=== PATIENT | male | born 1960 | race Caucasian/White ===

== ENCOUNTER 2016-09-01 23:27 | Inpatient (IN) | payer MEDICARE ==
--- NOTE | ~2016-09-01 | HP ---
Unit #: [id number] #: [id number] Patient: SABINO GRAY [id number] [address] [place], [place] [address] [id number] MR#: [id number] NAME: SABINO GRAY ROOM: Age: 56 Sex: M Admission Date: 09/01/2016 : 1960 Attending Physician: Vinny Chand M.D. Primary Care Physician: Jimi Bella M.D. HISTORY AND PHYSICAL CHIEF COMPLAINT Elavil overdose. HISTORY This 56-year-old male with hypertension, CAD, tremors, is admitted following a tricyclic overdose. The patient took an unknown amount of Elavil around 8 p.m. It was estimated possibly it was 400 mg but we are really unsure. He states that he took the Elavil to kill himself. He presented to this emergency department around midnight tachycardic. He was, therefore, given an amp of bicarb and bolused with a liter of saline. His EKG shows sinus tachycardia but his QRS is normal. PAST MEDICAL HISTORY 1. CAD, status post PCI and stent to the proximal LAD with drug-eluting stent x3. 2. Hyperlipidemia. 3. Hypertension. 4. GERD. 5. Tremor of uncertain etiology. 6. History of kidney stones. 7. Multiple hernia repairs. 8. Lithotripsy. 9. Cystoscopy x5. 10. T and A. 11. Right arm surgery following a fracture. ALLERGIES Morphine and Demerol. HOME MEDICATIONS Uncertain. FAMILY HISTORY CAD, diabetes mellitus and malignancy. SOCIAL HISTORY The patient lives with his . He smoked when he was in his teens. He drinks a bottle of wine on an evening basis. REVIEW OF SYSTEMS Notable for depression, suicide attempt, CAD, above-mentioned surgeries, hypertension, kidney stones, alcohol abuse. All other systems were Unit #: [id number] #: [id number] Patient: SABINO GRAY reviewed and are otherwise negative. PHYSICAL EXAMINATION GENERAL APPEARANCE: 56-year-old male who is quite tremulous. VITAL SIGNS: Temperature 97.8, pulse 121, respirations 14, blood pressure 132/86. O2 saturation 92% on room air. HEENT: Eyes PERRLA. Extraocular muscles are intact. Pharynx is benign with dry mucosal membranes. NECK: Supple without adenopathy or thyromegaly. CHEST: Clear. CARDIAC: Tachy S1 and S2 without murmur. ABDOMEN: Bowel sounds are present. No hepatosplenomegaly, tenderness or masses. EXTREMITIES: Without clubbing, cyanosis or edema. Pedal pulses are present. NEUROLOGIC: The patient is awake, alert but he seems to be a bit confused. His cranial nerves are intact. He is quite tremulous, particularly in his upper extremity on the left. These are both intention and resting tremor. DIAGNOSTIC STUDIES LABORATORY: SMA-12 - glucose 133, potassium 3.3. Acetaminophen, salicylate and alcohol levels are all negligible. ABG - pH 7.48, pCO2 36, pO2 67, O2 saturation 93.7% on room air. Urine tox screen positive for TCA. CARDIOVASCULAR: Initial EKG - sinus tachycardia, rate 121. Normal QRS. Repeat EKG - sinus tachycardia, rate 115. Prolonged QT interval but normal QRS. ASSESSMENT 1. Intentional tricyclic overdose: Possibly 400 mg but we are unsure. Patient is tachycardic with a normal QRS. 2. History of depression. 3. Tremors of uncertain etiology. 4. Coronary artery disease, status post multi-vessel percutaneous coronary intervention and stent. 5. Hypertension. 6. History of kidney stones. 7. Hypokalemia. 8. Alcohol abuse. PLANS 1. IV fluids with bicarb. 2. 72 hour hold with one-to-one sitter. 3. Benzos and vitamins. 4. SCDs for DVT prophylaxis. 5. Verify home medicines. 6. Replace potassium, check magnesium. 7. Recheck labs at noon. 8. [facility] to see when stable. Unit #: [id number] #: [id number] Patient: SABINO GRAY Dictated by Sagrario French M.D. AML/df TD: 09/02/2016 05:31 JOB #: [id number] HISTORY AND PHYSICAL Page 1 of 1 X Sagrario French MD HISTORY AND PHYSICAL
--- NOTE | ~2016-09-01 | DS ---
Unit #: [id number] #: [id number] Patient: SABINO GRAY [id number] [address] [place], [place] [address] [id number] I MR#: [id number] NAME: SABINO GRAY ROOM: 322 Age: 56 Sex: M Admission Date: 09/02/2016 : 1960 Discharge Date: 09/04/2016 Attending Physician: Unique Mcdaniel M.D. Primary Care Physician: Jimi Bella M.D. DISCHARGE SUMMARY ADDENDUM REPORT Since the time of that dictation, the patient was evaluated by [facility] who felt that the patient was not stable due to his much needed assistance with activities such as daily living. Therefore, was looking at other facilities that would be willing to accept the patient. They felt that this was possibly due to the Librium that the patient was being given that was making him more sedated than usual. Therefore, held off any additional Librium to be used. Dr. Cabrera of psychiatry, had been by in consultation to see the patient who felt that the patient was appropriate for [facility] and will be asking the admitting nurse to come back out to reevaluate the patient. At this time, the patient is stable to be discharged home. DISCHARGE MEDICATIONS The only thing that is different than what was stated yesterday is his home usage of metoprolol, will be stopped, and instead will be using propranolol 60 mg orally daily. Again please note at this time that the patient is safe and medically stable to be discharged to [facility] for continuing psychiatric need. Dictated by... Jazmin Bradford PA-C for Tae Stallings/sara TD: 09/05/2016 14:55 JOB #: [id number] DISCHARGE SUMMARY Page 1 of 1 X X DISCHARGE SUMMARY
--- NOTE | ~2016-09-01 | EKG ---
PATIENT: SABINO GRAY UNIT #: [id number] Ventricular Rate: 121 BPM Atrial Rate: 47 BPM QRS Duration: 110 ms Q-T Interval: 436 ms QTC Calculation(Bezet): 619 ms Calculated R Caney: 70 degrees Calculated T Caney: 25 degrees Diagnosis Line: Accelerated Junctional rhythm Diagnosis Line: Abnormal ECG Diagnosis Line: When compared with ECG of 26-NOV-2015 21:10, Diagnosis Line: Junctional rhythm has replaced Sinus rhythm Diagnosis Line: Criteria for Septal infarct are no longer Present Diagnosis Line: ST elevation now present in Lateral leads Diagnosis Line: Confirmed by BERTRAND LEIVA MD ([id number]) on 09/02/2016 Diagnosis Line: 10:41:17 AM INTERPRETING MD: CALI MUSA
--- NOTE | ~2016-09-01 | CO ---
Unit #: [id number] #: [id number] Patient: AJ SUNSHINE [id number] [facility] [address]. [place], [place] [address] [id number] I MR#: [id number] NAME: AJ SUNSHINE ROOM: 322 Age: 56 Sex: M Admission Date: 09/02/2016 : 1960 Attending Physician: Unique Mcdaniel M.D. Primary Care Physician: Jimi Bella M.D. Consultation Date: 09/03/2016 CONSULTATION REPORT REASON FOR CONSULTATION Overdose and depression. HISTORY OF PRESENT ILLNESS Mr. Aj Sunshine is a 56-year-old white male, seen in room 322, bed 1 on 09/03/2016 at [facility]. The patient was admitted on 09/01/2016 after taking Elavil overdose. The patient has a history of hypertension, CAD, and tremor. The patient has a good support system. Suffered from depression, history of previous suicide attempt. The patient was initially very sleepy. The patient reported that he was drinking and feeling sad, depressed, and took pills. The patient took intentional overdose with a plan to kill himself. The patient is still having suicidal ideation, sad, and depressed, but denied any hallucination. History of alcohol abuse. Needing inpatient admission for psychiatric stabilization. PAST PSYCHIATRIC HISTORY Remarkable for history of depression, history of previous suicide attempt, outpatient treatment. MEDICAL HISTORY History of CAD, status post PCI and stent to the proximal LAD; hyperlipidemia; hypertension; GERD; tremor of uncertain etiology; history of kidney stone; multiple hernia repairs; lithotripsy; cystoscopy; T and A; right arm surgery following fracture. ALLERGIES To morphine and Demerol. MEDICATIONS Please refer to MAR. FAMILY HISTORY AND SOCIAL HISTORY The patient has a good support from family. No history of any abuse, but history of alcohol abuse as mentioned above. REVIEW OF SYSTEMS A complete review of systems is unremarkable except as mentioned above. MENTAL STATUS EXAMINATION Vital signs; temperature 98.2, pulse 89, respirations 20, blood pressure 110/76, oxygen saturation 94%. General appearance; the patient dressed casually, lying comfortably in bed, but somewhat sleepy. Attention span and concentration, fair. Speech, slow. Oriented in time, place, and Unit #: [id number] #: [id number] Patient: AJ SUNSHINE. Mood and affect; sad and depressed. Thought process, coherent. Thought content; denied any thoughts of harming others, but having passive SI, recent suicide attempt. Denied any hallucination. Recent and remote memory, fair to slightly impaired. Language, fair. Fund of knowledge, fair to slightly impaired. Insight and judgment, fair to slightly impaired. DIAGNOSES Psychiatric: Major depressive disorder, recurrent, [id number]-[id number], F33.2; alcohol abuse, [id number]-py-elqbkt, F10.20. Secondary diagnosis: Deferred. Medical diagnosis: Please refer to H and P. Stressors: Psychosocial stressor. ASSESSMENT AND PLAN 1. Supportive psychotherapy and psychoeducation provided to the patient and family. 2. Educated about benefits and side effects of medication and course and prognosis of illness. 3. Recommending at this time to continue with hold and sitter for safety and transfer the patient to [facility] for inpatient psychiatric stabilization. Please feel free to call if any questions, telephone #[phone]. Dictated by... Lane Cabrera M.D. CASSIE/teddy TD: 09/04/2016 15:43 JOB #: [id number] CONSULTATION REPORT Page [address] MD X CONSULTATION REPORT
--- NOTE | ~2016-09-01 | CR58 ---
[facility] A Service of [facility] & [facility] RADIOLOGY TEXT RESULTS PATIENT: SABINO GRAY LOCATION: [facility] 322-01 : [birth year] UNIT #: [id number] AGE: [address]: Unique Mcdaniel MD SEX: M ORDER DR: [id number] [facility] [address] [place], [place] [address] [id number] I MR#: [id number] Acc #: [id number] NAME: SABINO GRAY : 1960 SEX: M STUDY DATE/TIME: 09/02/2016 13:32 UNIT: [address] ROOM: [facility] STUDY DESCRIPTION: CR Cervical Spine 2 or 3 Views Attending Physician: Unique Mcdaniel M.D. Ordering Physician: Tyrone Calle M.D. Primary Care Physician: Jimi Bella M.D. MEDICAL IMAGING REPORT This report is preliminary unless electronic signature is present EXAM Cervical spine series 09/02/2016 HISTORY Arm pain, numbness. Back pain, left arm pain began yesterday. History of cardiac disease. FINDINGS AP, lateral, open-mouth odontoid and swimmer's views of the cervical spine are presented. Poor quality study due to poor patient positioning and radiographic technique. No fracture or malalignment is suggested. Vertebral body heights are normal. Mild narrowing C2-C3 intervertebral disc space. Mild narrowing C5-C6 intervertebral disc space. Anterior osteophyte formations most prevalent at the C5-C6 level. C1-C2 relationship grossly normal. Visualized portions of odontoid process intact. Prevertebral soft tissues unremarkable. Visualized bony thorax intact. Upper lung zones show no evidence of acute pulmonary disease. Scattered dental hardware. Dictated by... Carlos Da Silva M.D. THIS IS AN ELECTRONICALLY VERIFIED REPORT Carlos Da Silva M.D. at 09/03/2016 7:52 PM GRICEL/jane TD: 09/02/2016 15:49 JOB #: [id number] MEDICAL IMAGING REPORT Page 1 of 1 COPY
--- NOTE | ~2016-09-01 | EKG ---
PATIENT: SABINO GRAY UNIT #: [id number] Ventricular Rate: 115 BPM Atrial Rate: 115 BPM P-R Interval: 196 ms QRS Duration: 90 ms Q-T Interval: 450 ms QTC Calculation(Bezet): 622 ms P Otter[place]: -28 degrees Calculated R [place]: 82 degrees Calculated T [place]: 40 degrees Diagnosis Line: Sinus tachycardia with Fusion complexes Diagnosis Line: Prolonged QT Baseline wander Diagnosis Line: Abnormal ECG Diagnosis Line: When compared with ECG of 26-NOV-2015 21:10, Diagnosis Line: Fusion complexes are now Present Diagnosis Line: Criteria for Septal infarct are no longer Present Diagnosis Line: Confirmed by BERTRAND LEIVA MD ([id number]) on 09/02/2016 Diagnosis Line: 10:44:24 AM INTERPRETING MD: CALI MUSA
--- NOTE | ~2016-09-01 | CR243 ---
[facility] A Service of [facility] & [facility] RADIOLOGY TEXT RESULTS PATIENT: SABINO GRAY LOCATION: [facility] 322-01 : 60 UNIT #: [id number] AGE: [address]: Unique Mcdaniel MD SEX: M ORDER DR: [id number] [facility] [address] [place], [place] [address] [id number] I MR#: [id number] Acc #: [id number] NAME: SABINO GRAY : 1960 SEX: M STUDY DATE/TIME: 09/02/2016 13:32 UNIT: C3A PCU ROOM: [facility] STUDY DESCRIPTION: CR Thoracic Spine 3 Views Attending Physician: Unique Mcdaniel M.D. Referring Physician: Jonathan Moore M.D. Ordering Physician: Tyrone Calle M.D. Primary Care Physician: Jimi Bella M.D. MEDICAL IMAGING REPORT This report is preliminary unless electronic signature is present EXAM Thoracic spine series. DATE OF EXAM 09/02/2016 HISTORY Arm pain numbness yesterday it began. Left arm pain, back pain. FINDINGS AP, lateral and swimmer's views of the thoracic spine presented. Poor quality study. Monitoring leads and wires and associated equipment overlie relevant anatomy. No fracture or malalignment. Vertebral body heights normal. Mild narrowing of some intervertebral disc spaces in the thoracolumbar junction region. Mild degenerative changes in the visualized cervical spine. There is no indication of fracture or traumatic malalignment. Small osteophyte formations seen at lower cervical spine levels and at the thoracolumbar junction levels. Visualized cardiac silhouette suggests mild cardiac enlargement. Lung volumes appear low with central bronchovascular crowding. The visualized ribs are intact. Visualized bowel gas pattern normal. Faint radiodensities superimposed over the right upper quadrant of the abdomen measuring about 9 mm in diameter is of unclear exact location. Given the appearance on the frontal view, it could represent a gallstone. Renal calculus felt less likely though not excluded. Vascular calcification is a consideration. Precise location unclear. If clinically warranted this could be further evaluated with CT examination. Dictated by... Carlos Da Silva M.D. [facility] A Service of [facility] RADIOLOGY TEXT RESULTS PATIENT: SABINO GRAY LOCATION: C3A 322-01 : 60 UNIT #: [id number] AGE: [address]: Unique Mcdaniel MD SEX: M ORDER DR: THIS IS AN ELECTRONICALLY VERIFIED REPORT Carlos Da Silva M.D. at 09/03/2016 7:52 PM GRICEL/marcel TD: 09/02/2016 17:06 JOB #: [id number] MEDICAL IMAGING REPORT Page 1 of 1 COPY
--- NOTE | ~2016-09-01 | DS ---
Unit #: [id number] #: [id number] Patient: SABINO GRAY [id number] [address] [place], [place] [address] [id number] I MR#: [id number] NAME: SABINO GRAY ROOM: 322 Age: 56 Sex: M Admission Date: 09/02/2016 : 1960 Discharge Date: Attending Physician: Unique Mcdaniel M.D. Primary Care Physician: Jimi Bella M.D. DISCHARGE SUMMARY DISCHARGE DIAGNOSES 1. Intentional overdose with Elavil. 2. History of depression with suicidal ideation. 3. Tremors of uncertain etiology. 4. History of coronary artery disease, status post multivessel percutaneous coronary intervention and stent. 5. History of essential hypertension. 6. History of kidney stones. 7. Alcohol abuse. 8. Hypokalemia. 9. Hypomagnesemia. 10. B12 deficiency with symptoms of left arm numbness. Will rule out any cord compression in the spine. 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 PROCEDURE None. DIAGNOSTIC STUDIES LABORATORY: BMP: Glucose 115, BUN 15, creatinine 1.2, sodium 141, potassium 3.8, chloride 102. Magnesium 1.6, will be replacing. Cardiac enzymes were none detected. B12 of 176. TSH 1.3. Free T4 is 1.04. CBC with WBC of 8.2, RBC 4.51, hemoglobin 14.2, hematocrit 42.4, MCV 93.9, MCH 31.5, MCHC 33.5, RDW 13.2, platelets 180,000, MPV 7.3. Urine drug screen was positive for TCA. IMAGING: X-ray of cervical spine and thoracic was ordered. HOSPITAL COURSE Patient is a 56-year-old male with past medical history of coronary artery disease, stent placement, hyperlipidemia, essential hypertension, GERD, tremor of uncertain etiology, history of kidney stone, multiple hernia repairs, lithotripsy, cystoscopy, recurrent kidney stones who was brought to the emergency department due to an intentional overdose of Elavil around 8 o'clock on the evening of admission. Patient stated that he had taken the Elavil in a suicide attempt. The patient states that he is depressed from all of his medical problems and the pain that is associated with it, heart disease, abdominal hernia repair with mesh, back pain, also financial burden. He does not work out of the home, only his does. They have no insurance. Patient stated that he was diagnosed with Parkinson disease in the emergency department a couple months ago and has not seen a neurologist because he does not have financial ability to do Unit #: [id number] #: [id number] Patient: SABINO GRAY. Therefore, had taken the Elavil in a suicide attempt. The patient stated that he does not want to "live this way." At the time of my evaluation, patient still had suicidal thoughts and stated that he would possibly jump out of the window than have to live with the pain and the stress. Emergency room workup includes positive for TCA for urine drug screen. He was tachycardic with heart rates as high as 126. EKG revealed that this is sinus tachycardic. Heart rates at this time are still in the mid 90s but no QRS prolongation. Have checked cardiac enzymes myself which were all undetectable. Patient has no symptoms of chest pain. I believe at this time that patient is stable to be discharged to [facility]. He will be evaluated by [facility] for admission there for ongoing suicidal ideation and attempt. At this time, patient is medically stable [facility]. ACTIVITY None restricted. DIET None restricted. Patient can have a healthy heart diet. DISCHARGE MEDICATIONS 1. I would not resume the amitriptyline as he had overdose on this and will defer [facility] to resume this. 2. Lopressor 50 mg orally twice daily. 3. Lovastatin 20 mg orally daily. 4. Allopurinol 200 mg orally twice daily. 5. Meloxicam 7.5 mg orally twice daily. 6. Omeprazole 20 mg orally daily. 7. I would not resume the Flexeril. 8. Thiamine 100 mg orally daily. 9. B12 at 1000 mcg orally daily. Dictated by... Jazmin Bradford PA-C for Tae Stallings TD: 09/02/2016 14:18 JOB #: [id number] DISCHARGE SUMMARY Page 1 of 1 X X DISCHARGE SUMMARY
[~2016-09-01 23:27] MED LIST: ASPIRIN PO; ASPIRIN81 M1 PO; ATIVAN0.5 MG PO; CARAFATE1 G PO; CELEXA20 M1 PO; CHOLESTEROL; COLCRYS0.6 MG PO; DICYCLOMINE HCL20 MG PO; INDERAL LA120 MG PO; KEFLEX PO; LIPITOR20 MG PO; LOPRESSOR PO; LORTAB 5/500 TA1 TA1 PO; LORTAB 5/500 TA1 TA2 PO; LOVASTATIN20 M1 PO; MEDROL4 MG/DOSE- PO; METOPROLOL PO; MOBIC PO; NAPROXEN PO; OMEPRAZOLE20 M2 PO; PERCOCET 5-3251 TAB PO; PERCODAN TABLET1 TA1 PO; PHENERGAN PO; PHENERGAN25 MG PO; PLAVIX PO; PRAVASTATIN SOD40 MG PO; PREDNISONE PO; PREDNISONE10 MG/DOSE PO; PRILOSEC PO; PROTONIX PO; TYLOX 5/500 CAP1 CAP PO; VICODIN 5/1 TAB 5/50 PO; VISTARIL PO; ZOFRAN PO; ZYLOPRIM100 MG PO
[2016-09-02 02:07] LABS: PARTIAL THROMBOPLASTIN TIME 25.4 SECONDS (23.5-31.3); PROTHROMBIN TIME (PATIENT) 10.4 SECONDS (9.6-11.5)
[2016-09-02 02:07] LABS: AMPHETAMINE NEG (NEG); BARBITURATES NEG (NEG); BENZODIAZEPINES NEG (NEG); COCAINE NEG (NEG); MARIJUANA NEG (NEG); OPIATES NEG (NEG); TRICYCLIC ANTIDEPRESSANTS POS (NEG); U METHADONE NEG (NEG)
[2016-09-02 02:28] LABS: ARTERIAL BLD GAS O2 SATURATION 93.7 % (90.0-100.0); ARTERIAL BLOOD GAS CARBOXY HB 0.9 %sat (0.0-9.0); ARTERIAL BLOOD GAS HCO3 27.3 mmol/L; ARTERIAL BLOOD GAS MET HB 0.8 %sat (0.0-2.0); ARTERIAL BLOOD GAS PCO2 36.6 mmHg (35.0-45.0); ARTERIAL BLOOD GAS pH 7.482 (7.350-7.450)
[2016-09-02 02:30] LABS: ARTERIAL BLOOD GAS ALLEN TEST NORMAL; ARTERIAL BLOOD GAS ART SITE RIGHT RADIAL; ARTERIAL BLOOD GAS DELIVERY ROOM AIR; ARTERIAL BLOOD GAS PO2 67.7 mmHg (80.0-100); ARTERIAL DRAW? YES
[2016-09-02 02:50] LABS: ALBUMIN SERUM 4.7 g/dL (3.5-5.0); ALKALINE PHOSPHATASE 61 U/L (32-92); ALT (SGPT) 28 U/L (10-40); AST (SGOT) 30 U/L (10-42); BILIRUBIN, DIRECT 0.1 mg/dL (0.0-0.2); BILIRUBIN,INDIRECT 0.7 mg/dL (0.0-0.9); BILIRUBIN,TOTAL 0.8 mg/dL (0.2-2.0); BLOOD UREA NITROGEN 18 mg/dL (9-23); CALCIUM SERUM 9.8 mg/dL (8.4-10.2); CARBON DIOXIDE 23 mmol/L (22-31); CHLORIDE 104 mmol/L (100-111); CREATININE SERUM 1.2 mg/dL (0.6-1.4); GLOM FILT RATE Estimated 67.2 mL/min (>60); GLUCOSE FASTING 133 mg/dL (70-110); POTASSIUM 3.3 mmol/L (3.5-5.1); PROTEIN TOTAL SERUM 7.5 g/dL (6.0-8.3); SALICYLATE <4.0 mg/dL; SODIUM 139 mmol/L (135-145)
[2016-09-02 02:53] LABS: ACETAMINOPHEN <10 ug/mL; ALCOHOL BLOOD <5 mg/dL (0)
[2016-09-02 05:37] LABS: ARTERIAL BLD GAS O2 SATURATION 95.8 % (90.0-100.0); ARTERIAL BLOOD GAS CARBOXY HB 0.8 %sat (0.0-9.0); ARTERIAL BLOOD GAS HCO3 29.6 mmol/L; ARTERIAL BLOOD GAS MET HB 0.4 %sat (0.0-2.0); ARTERIAL BLOOD GAS PCO2 39.9 mmHg (35.0-45.0); ARTERIAL BLOOD GAS pH 7.478 (7.350-7.450)
[2016-09-02 05:39] LABS: ARTERIAL BLOOD GAS ART SITE RIGHT BRACHIAL; ARTERIAL BLOOD GAS DELIVERY NASAL CANNULA; ARTERIAL BLOOD GAS PO2 77.5 mmHg (80.0-100); ARTERIAL DRAW? YES
[2016-09-02 07:31] LABS: BASOPHIL% 0.2 % (0-2.5); EOSINOPHIL# 0.1 X10e3 (0-0.7); HEMATOCRIT 44.5 % (38.0-50.0); HEMOGLOBIN 14.8 gm/dL (13.0-16.0); LYMPHOCYTE# 2.5 X10e3 (1.0-3.5); LYMPHOCYTE% 26.3 % (17.0-45.0); MEAN CORPUSCULAR HEMOGLOBIN 31.6 PG (28-34); MEAN CORPUSCULAR HGB CONC 33.3 g/dL (30-36); MEAN PLATELET VOLUME 7.7 FL (6.5-11.5); MONOCYTE# 0.7 X10e3 (0-1.0); MONOCYTE% 7.6 % (3.0-12.0); NEUTROPHIL# 6.2 X10e3 (1.5-7.1); NEUTROPHIL% 64.9 % (40-75); PLATELET COUNT 188 X10e3 (140-420); RED BLOOD COUNT 4.69 X10e (3.90-5.60); RED CELL DISTRIBUTION WIDTH 13.2 % (11.0-15.5); WHITE BLOOD COUNT 9.6 X10e3 (4.0-10.5)
[2016-09-02 07:32] LABS: DIFF IND NO
[2016-09-02] MEDS ORDERED: FLEXERIL10 MG PO (09:26)
[2016-09-02] MEDS ORDERED: LOPRESSOR PO (09:26)
[2016-09-02] MEDS ORDERED: AMITRIPTYLINE H50 MG PO (09:26)
[2016-09-02] MEDS ORDERED: MELOXICAM7.5 MG PO (09:27)
[2016-09-02 09:55] LABS: BUN/CREATININE RATIO 15.45; CALCIUM SERUM 9.2 mg/dL (8.4-10.2); CREATININE SERUM 1.1 mg/dL (0.6-1.4); GLOM FILT RATE Estimated 74.7 mL/min (>60); MAGNESIUM 1.6 mg/dL (1.6-3.0); POTASSIUM 3.3 mmol/L (3.5-5.1)
[2016-09-02 12:21] LABS: HEMATOCRIT 42.4 % (38.0-50.0); HEMOGLOBIN 14.2 gm/dL (13.0-16.0); MEAN CELL VOLUME 93.9 FL (83-96); MEAN CORPUSCULAR HEMOGLOBIN 31.5 PG (28-34); MEAN CORPUSCULAR HGB CONC 33.5 g/dL (30-36); MEAN PLATELET VOLUME 7.3 FL (6.5-11.5); RED BLOOD COUNT 4.51 X10e (3.90-5.60); RED CELL DISTRIBUTION WIDTH 13.2 % (11.0-15.5); WHITE BLOOD COUNT 8.2 X10e3 (4.0-10.5)
[2016-09-02 12:43] LABS: BUN/CREATININE RATIO 12.5; CREATININE SERUM 1.2 mg/dL (0.6-1.4); GLOM FILT RATE Estimated 67.2 mL/min (>60); MAGNESIUM 1.6 mg/dL (1.6-3.0); POTASSIUM 3.8 mmol/L (3.5-5.1)
[2016-09-02 13:05] LABS: THYROID STIMULATING HORMONE 1.3 uIU/ml (0.34-5.60)
[2016-09-02 13:14] LABS: FREE THYROXIN (T4) 1.07 ng/dL (0.58-1.64)
[2016-09-02 13:20] LABS: %MB 1.8 % (0.0-4.0); MB 4.2 ng/ml
[2016-09-03 12:52] LABS: HEMATOCRIT 42.3 % (38.0-50.0); HEMOGLOBIN 14.1 gm/dL (13.0-16.0); MEAN CELL VOLUME 95.4 FL (83-96); MEAN CORPUSCULAR HEMOGLOBIN 31.9 PG (28-34); MEAN CORPUSCULAR HGB CONC 33.4 g/dL (30-36); MEAN PLATELET VOLUME 7.4 FL (6.5-11.5); RED BLOOD COUNT 4.43 X10e (3.90-5.60); RED CELL DISTRIBUTION WIDTH 13.3 % (11.0-15.5); WHITE BLOOD COUNT 8.4 X10e3 (4.0-10.5)
[2016-09-03 13:16] LABS: BUN/CREATININE RATIO 8.33; CALCIUM SERUM 8.6 mg/dL (8.4-10.2); CREATININE SERUM 1.2 mg/dL (0.6-1.4); GLOM FILT RATE Estimated 67.2 mL/min (>60); MAGNESIUM 2.2 mg/dL (1.6-3.0); POTASSIUM 4.5 mmol/L (3.5-5.1)
== END 2016-09-04 16:45 | DRG 918 ==
LOC: CED 23:27 → C3A PCU 09-02 05:26 → CED 09-02 05:26 → CEDOF 09-02 05:26 → C3A PCU 09-02 10:18
PROVIDERS: Emergency Medicine; Family Medicine; Internal Medicine; Physician Assistant Medical
DX: T43.012A Poisoning by tricyclic antidepressants, intentional self-harm, initial encounter (principal); F33.2 Major depressive disorder, recurrent severe without psychotic features; I10 Essential (primary) hypertension; I25.10 Atherosclerotic heart disease of native coronary artery without angina pectoris; R25.1 Tremor, unspecified; Z95.5 Presence of coronary angioplasty implant and graft; E78.5 Hyperlipidemia, unspecified; K21.9 Gastro-esophageal reflux disease without esophagitis; Z87.442 Personal history of urinary calculi; E87.6 Hypokalemia; F10.20 Alcohol dependence, uncomplicated; E83.42 Hypomagnesemia; E53.8 Deficiency of other specified B group vitamins; Y90.0 Blood alcohol level of less than 20 mg/100 ml
CPT/HCPCS: 36415; 36600; 72040; 72072; 80048; 80076; 80307; 82550; 82553; 82607; 82803; 83735; 84439; 84443; 84484; 85025; 85027; 85610; 85730; 93005; 96361; 96374; 99285; G0480; J3475

== ENCOUNTER 2016-09-03 15:00 | Inpatient (IN) | payer MEDICARE ==
--- NOTE | ~2016-09-03 | PN ---
Unit #: [id number] #: [id number] Patient: AJ GRAY [id number] [facility] [address] [place] [address] [id number] I MR#: [id number] NAME: AJ GRAY ROOM: P251 Age: 56 Sex: M Admission Date: 09/04/2016 : 1960 Attending Physician: Lane Cabrera M.D. Admitting Physician: Lane Cabrera M.D. Primary Care Physician: Tae Koenig NOTES DATE OF SERVICE: 09/09/2016 DISCUSSION Aj Gray is a 56-year-old male. The patient interviewed, chart reviewed, and obtained information from nursing staff. The patient compliant and cooperative. Mood is sad, dysphoric, and flat. The patient reports that he is making progress, but still feeling sad and depressed. Denied any suicidal ideation, but feeling of hopelessness and worthlessness, which is improving. The patient was able to stay in the day room, still having shakes due to his Parkinson disease. Compliant with medication. No side effects from medication. REVIEW OF SYSTEMS Complete review of systems unremarkable. MENTAL STATUS EXAMINATION General appearance, the patient dressed in hospital attire. Hygiene and grooming, somewhat poor. Attention span and concentration, fair. Oriented in time, place and person. Mood and affect, sad and depressed. Speech, monotone. Thought process, concrete. The patient reported having suicidal ideation, passive. Denied any homicidal ideation. Denied any psychotic symptom, but still sad, depressed, isolative, and guarded. Recent and remote memory, poor. Insight and judgment, poor. DIAGNOSES Major depressive disorder, recurrent, moderate and alcohol use disorder, moderate. ASSESSMENT AND PLAN Advised to continue with current medication and therapeutic protocol. If needed, consider further adjustment of medication. Dictated by... Lane Cabrera M.D. CASSIE/teddy TD: 09/10/2016 18:19 JOB #: [id number] Unit #: [id number] #: [id number] Patient: AJ GRAY PROGRESS NOTES Page 1 of [address] MD PROGRESS NOTE
--- NOTE | ~2016-09-03 | PN ---
Unit #: [id number] #: [id number] Patient: AJ GRAY [id number] [facility] [address] [place] [address] [id number] MR#: [id number] NAME: AJ GRAY ROOM: P251 Age: 56 Sex: M Admission Date: 09/04/2016 : 1960 Attending Physician: Lane Cabrera M.D. Admitting Physician: Lane Cabrera M.D. Primary Care Physician: Tae Koenig PROGRESS NOTES DATE 09/15/2016 DISCUSSION Aj Gray is a 56-year-old male, seen on 09/15/2016. The patient interviewed, chart reviewed, and obtained information from the nursing staff. The patient reporting still feeling sad, depressed, but suicidal ideation, getting better, still having trouble sleeping. Hygiene and grooming poor, flat affect, sad and dysphoric mood. The patient was able to attend some group, still unsteady, shaky, due to Parkinson's disease. REVIEW OF SYSTEMS Complete review of systems unremarkable. MENTAL STATUS EXAMINATION General appearance: Patient dressed in hospital attire. Hygiene and grooming poor. Attention span and concentration, [id number]. Oriented to place and person. Mood and affect, sad and depressed. Speech, poor articulation due to Parkinson's. Thought process, circumstantial. The patient denied any thoughts of harming self or others but guarded. Recent and remote memory, poor. Insight and judgment, poor. DIAGNOSIS Major depressive disorder, recurrent, severe. ASSESSMENT/PLAN Advised to continue with the current medication and therapeutic protocol, and if needed consider further adjustment of medication. At this time plan to increase trazodone to 100 mg at bedtime for sleep. Dictated by... Tae Orellana/sara TD: 09/16/2016 11:24 JOB #: [id number] Unit #: [id number] #: [id number] Patient: AJ GRAY PROGRESS NOTES Page [address] MD PROGRESS NOTE
--- NOTE | ~2016-09-03 | PN ---
Unit #: [id number] #: [id number] Patient: AJ GRAY [id number] [facility] [address] [place] [address] [id number] MR#: [id number] NAME: AJ GRAY ROOM: P251 Age: 56 Sex: M Admission Date: 09/04/2016 : 1960 Attending Physician: Lane Cabrera M.D. Admitting Physician: Lane Cabrera M.D. Primary Care Physician: Tae Koenig NOTES DATE OF SERVICE 09/08/2016 DISCUSSION Aj Gray is a 56-year-old male seen on 09/08/2016. The patient interviewed, chart reviewed. Obtained information from nursing staff. The patient was able to eat his breakfast in the lunch room. The patient needed some assistance. Still having gross tremors. Mood sad, dysphoric, flat affect, guarded. Still having suicidal ideation. Sad, dysphoric mood. Needing help with ADLs. The patient was cooperative. Still having problem with depression, paranoia. Complete Review of Systems: Unremarkable. MENTAL STATUS EXAMINATION General Appearance: The patient dressed casually in hospital attire. Attention span, concentration: Poor. Oriented in place. Mood and affect labile. Speech: Monotone. Thought process: [place]. The patient denied any thoughts of harming self or others but having passive SI, guarded, withdrawn, isolative. Recent and remote memory: Poor. Insight and judgment: Poor. DIAGNOSES 1. Major depressive disorder, recurrent. 2. Alcohol use disorder, moderate. ASSESSMENT/PLAN Advised to continue with current medication and therapeutic protocol. If needed, consider further adjustment of medication. Dictated by... Tae Orellana/carmen TD: 09/10/2016 14:23 JOB #: [id number] Unit #: [id number] #: [id number] Patient: AJ GRAY PROGRESS NOTES Page 1 [address] MD PROGRESS NOTE
--- NOTE | ~2016-09-03 | PA ---
Unit #: [id number] #: [id number] Patient: SABINO CARL [id number] [facility] [address] [place] [address] [id number] MR#: [id number] NAME: SABINO CARL ROOM: P251 Age: 56 Sex: M Admission Date: 09/04/2016 : 1960 Date of Assessment: Attending Physician: Lane Cabrera M.D. Admitting Physician: Lane Cabrera M.D. Primary Care Physician: Jimi Bella M.D. PSYCHIATRIC ASSESSMENT INFORMANTS The patient reliability, fair informant; chart reliability, good. CHIEF COMPLAINT Depression. HISTORY OF PRESENT ILLNESS Pee Carl is a 56-year-old male, admitted from [facility]. The patient was admitted with suicide attempt by ingesting a handful of pills with a bottle of wine. The patient reported feeling sad, depressed, hearing voices. The patient denied any homicidal ideation, but feeling scared, anxious. The patient was medically treated and subsequently [facility]. The patient denied any homicidal ideation, currently on 72-hour hold. PAST PSYCHIATRIC HISTORY Remarkable for history of inpatient treatment in 2004, long history of depression. FAMILY HISTORY AND SOCIAL HISTORY The patient has a good support system. No history of any abuse. MEDICAL HISTORY Remarkable for history of GERD, hypertension, Parkinson disease. Musculoskeletal; strength and tone, no atrophy, but abnormal movement noted. Gait abnormal. MEDICATION HISTORY The patient is on Lopressor 50 mg, lovastatin 20 mg daily, allopurinol 200 mg b.i.d., Meloxicam 7.5 mg b.i.d., omeprazole 20 mg daily, thiamine 100 mg daily, B12 1000 mcg daily. ALLERGIES No known drug allergies. SUBSTANCE ABUSE HISTORY History of alcohol abuse. No history of any illicit drug use. REVIEW OF SYSTEMS HEENT: Eyes; clear. Ears, nose, mouth, and throat; clear. CARDIOVASCULAR: Unremarkable. RESPIRATORY: Unremarkable. Unit #: [id number] #: [id number] Patient: SABINO CARL GI: Unremarkable. : Unremarkable. SKIN: Unremarkable. LYMPH NODE: Unremarkable. NEUROLOGIC: Unremarkable. ENDOCRINE: Unremarkable. HEMATOLOGIC: Unremarkable. ALLERGIC/IMMUNOLOGIC: Unremarkable. MUSCULOSKELETAL: Muscle strength and tone, no atrophy, but abnormal movement noted. The patient reported pain in his left leg. MENTAL STATUS EXAMINATION CONSTITUTIONAL: Measurement of vital signs; temperature is 97.6, pulse 74, respirations 17, oxygen saturation 98%, blood pressure 119/68, height 5 feet 6 inches, weight 255 pounds. GENERAL APPEARANCE: The patient dressed casually. No abnormal movements, but abnormal movements of his hand noted. MUSCULOSKELETAL: Please see above. PSYCHIATRIC EXAMINATION Description of speech; slow in volume and rate. Description of thought process, circumstantial. Description of association; guarded, paranoid, sad, and depressed. Denied any homicidal ideation. Recent suicide attempt. Description of the patient's judgment, concerning everyday activity, poor. Social situation, poor. Concerning psychiatric condition, poor. Complete mental status examination; oriented in time, place, and person. Recent and remote memory, fair. Attention span and concentration, fair. Language, intact. Fund of knowledge, fair. Mood and affect; labile, sad, and dysphoric. Insight and judgment, fair to poor. ASSETS AND LIABILITIES Assets; the patient is articulate, able to take care of his ADL. Liability; history of depression, needing help with the ADLs at this time. ADMITTING DIAGNOSES Psychiatric: Major depressive disorder, recurrent, [id number], F33.2; alcohol use disorder, moderate, F10.20. Secondary diagnosis: Deferred. Medical diagnoses: Gastroesophageal reflux disease, hypertension, Parkinson disease. Stressors: Psychosocial stressor. PSYCHIATRIC PLAN 1. Advised to admit the patient on the inpatient unit. Provide safe, supportive, and structured environment. 2. Ordered labs; CBC, CMP, UA, and UDS. 3. Precaution for aggression, self-harm. 4. Recommending one-to-one monitoring for the patient's safety. 5. Advised to resume home medication. If needed, consider further adjustment of medication such as adding Prozac and Zyprexa. TREATMENT GOAL To attain euthymic mood, gain insight into his problem, and learn coping Unit #: [id number] #: [id number] Patient: SABINO CARL. DISCHARGE PLAN Plan to stabilize the patient and consider followup in outpatient program. ESTIMATED LENGTH OF STAY 2 weeks. Dictated by... Lane Cabrera M.D. CASSIE/teddy TD: 09/05/2016 21:41 JOB #: [id number] PSYCHIATRIC ASSESSMENT Page [address] MD PSYCHIATRIC ASSESSMENT
--- NOTE | ~2016-09-03 | HP ---
Unit #: [id number] #: [id number] Patient: AJ GRAY [id number] [place] [address] [id number] I MR#: [id number] NAME: AJ GRAY ROOM: P251 Age: 56 Sex: M Admission Date: 09/04/2016 : 1960 Attending Physician: Lane Cabrera M.D. Admitting Physician: Lane Cabrera M.D. Primary Care Physician: Jimi Bella M.D. HISTORY AND PHYSICAL HISTORY OF PRESENT ILLNESS Aj is a 56-year-old male admitted 09/04/[address] [place] [address] for attempted suicide by overdosing on Elavil. PAST MEDICAL HISTORY 1. Hypertension 2. Parkinson disease 3. Coronary artery disease 4. Multiple kidney stones PAST SURGICAL HISTORY 1. Cardiac cath with stent placement 2. Abdominal hernia surgical repair 3. Right wrist fracture surgical repair 4. Lithotripsy 5. [place] tooth removal SOCIAL HISTORY No tobacco or illegal drug use. Does report a history of binge alcohol use. He is currently and living with his . FAMILY HISTORY Noncontributory. REVIEW OF SYSTEMS CONSTITUTIONAL: No fever or chills. HEENT: Denies any sore throat, ear pain or runny nose. CARDIOVASCULAR: Denies chest pain, irregular heart rhythm or palpitations. CHEST: Denies shortness of breath or cough. No hemoptysis. GASTROINTESTINAL: Denies nausea, vomiting, diarrhea or chronic constipation. ENDOCRINE: Denies history of increased thirst or urination. No recent significant weight loss or gain. GENITOURINARY: Denies dysuria, frequency, or hematuria. SKIN: Denies any rashes. HEMATOLOGIC: Denies history of increased bleeding or bruising. MUSCULOSKELETAL: Pain in left and swelling in left knee. NEUROLOGIC: Denies problems with vision or speech. No frequent, severe headaches. No numbness, tingling or weakness in any extremities. Denies loss of bladder or bowel control. CURRENT MEDICATIONS 1. Lopressor Unit #: [id number] #: [id number] Patient: AJ GRAY 2. Lovastatin 3. Allopurinol 4. Meloxicam 5. Omeprazole 6. Thiamine 7. B12 8. Sinemet 9. Mirapex ALLERGIES No known drug allergies. PHYSICAL EXAMINATION GENERAL: Alert, oriented, in no acute distress. VITAL SIGNS: Blood pressure 114/71, heart rate 87. SKIN: Warm and dry without rash or lesion. HEENT: Normocephalic. TMs not viewed. Oral and nasal passages clear. Conjunctivae clear. PERRLA. EOMs intact. NECK: Supple without lymphadenopathy or thyromegaly. HEART: Regular rate and rhythm without murmur. LUNGS: Clear. ABDOMEN: Soft, nontender, without masses or hepatosplenomegaly. : Not done. MUSCULOSKELETAL: Edema and warmth left anterior knee. No tenderness with palpation in popliteal area or left calf. No edema, redness or swelling in left calf popliteal area on the left. No edema, redness or tenderness to palpation of the left calf or ankle. NEUROLOGICAL: Grossly within normal limits. Cranial Nerves: II: Visual camejo are intact. III, IV AND : Extraocular movements are intact. Pupils are equal, round and reactive to light. V: Facial sensation is grossly normal. VII: Facial movements and expression are normal. VIII: Auditory acuity grossly intact. IX, X: Uvula is midline. Phonation is normal. XI: Patient shrugs shoulders and turns head normally. XII: Tongue protrudes in the midline. Sensory and Motor Function: Sensory and motor sensation is grossly normal. Motor: moves all extremities well. Coordination: Gait is normal. Deep Tendon Reflexes: Intact. ASSESSMENT AND PLAN Left knee pain. The patient is currently taking Meloxicam. Will add tramadol 50 mg p.o. q 12 hours p.r.n. for pain and encourage the patient to use ice three times daily for 15 minutes each. If symptoms are unresolved please notify. Dictated by... Vani Ryan TD: 09/06/2016 03:15 JOB #: [id number] Unit #: [id number] #: [id number] Patient: AJ GRAY HISTORY AND PHYSICAL Page 1 of 1 X YAKOV BECERRA APRN HISTORY AND PHYSICAL
--- NOTE | ~2016-09-03 | PN ---
Unit #: [id number] #: [id number] Patient: AJ GRAY [id number] [facility] [address] [place] [address] [id number] I MR#: [id number] NAME: AJ GRAY ROOM: P251 Age: 56 Sex: M Admission Date: 09/04/2016 : 1960 Attending Physician: Lane Cabrera M.D. Admitting Physician: Lane Cabrera M.D. Primary Care Physician: Tae Koenig NOTES DATE OF SERVICE: 09/11/2016 DISCUSSION Aj Gray is a 56-year-old male, seen on 09/11/2016. The patient interviewed, chart reviewed, and obtained information from nursing staff. The patient compliant and cooperative. Mood is sad, dysphoric, flat affect, and guarded. The patient did not show any aggressive behavior, but still reporting feeling sad, depressed, isolative, and guarded. The patient still has tremors, hand shaky and unsteady. Still reporting depressive symptom. REVIEW OF SYSTEMS Complete review of systems unremarkable. MENTAL STATUS EXAMINATION General appearance, the patient dressed casually in hospital attire. Hygiene and grooming, poor. Attention span and concentration, fair. Oriented in place and person. Mood and affect, sad and depressed. Speech, monotone. Thought process, concrete. The patient reported passive SI, but denied any homicidal ideation. Guarded. Recent and remote memory, poor. Insight and judgment, poor. DIAGNOSIS Major depressive disorder, recurrent, severe. ASSESSMENT AND PLAN Advised to continue with current medication. If needed, consider further adjustment of medication. Dictated by... Tae Orellana/teddy TD: 09/12/2016 17:00 JOB #: [id number] Unit #: [id number] #: [id number] Patient: AJ GRAY PROGRESS NOTES Page 1 [address] MD PROGRESS NOTE
--- NOTE | ~2016-09-03 | PN ---
Unit #: [id number] #: [id number] Patient: AJ GRAY [id number] [facility] [address] [place] [address] [id number] I MR#: [id number] NAME: AJ GRAY ROOM: P251 Age: 56 Sex: M Admission Date: 09/04/2016 : 1960 Attending Physician: Lane Cabrera M.D. Admitting Physician: Lane Cabrera M.D. Primary Care Physician: Tae Koenig PROGRESS NOTES DATE OF SERVICE: 09/14/2016 DISCUSSION Mr. Aj Gray is a 56-year-old male, seen on 09/14/2016. The patient interviewed, chart reviewed, and obtained information from nursing staff. The patient's hygiene and grooming, poor; withdrawn; isolative; flat affect, guarded. The patient was able to attend some group, but still reporting feeling sad, depressed. Vital signs stable; temperature 97.6, pulse 93, blood pressure 130/78. The patient reports that he is not quite ready to go back home; reports talking to his , feeling somewhat better but still unable to contract for safety if discharged home; still unsteady on his feet, needing Walker. REVIEW OF SYSTEMS Complete review of systems unremarkable. MENTAL STATUS EXAMINATION General appearance, the patient dressed casually in hospital attire. Hygiene and grooming, poor. Oriented in place and person. Mood and affect, sad and depressed. Speech, monotone. Thought process, circumstantial. The patient denied any thoughts of harming others but having passive SI, unable to contract for safety if discharge home today. Recent and remote memory, poor. Insight and judgment, poor. DIAGNOSIS Major depressive disorder, recurrent, severe. ASSESSMENT/PLAN Advised to continue with current medication and therapeutic protocol. If needed, consider further adjustment of medication. Dictated by... Tae Orellana/teddy TD: 09/15/2016 23:23 JOB #: [id number] Unit #: [id number] #: [id number] Patient: AJ GRAY PROGRESS NOTES Page 1 [address] MD PROGRESS NOTE
--- NOTE | ~2016-09-03 | PN ---
Unit #: [id number] #: [id number] Patient: AJ GRAY [id number] [facility] [address] [place] [address] [id number] I MR#: [id number] NAME: AJ GRAY ROOM: P251 Age: 56 Sex: M Admission Date: 09/04/2016 : 1960 Attending Physician: Lane Cabrera M.D. Admitting Physician: Lane Cabrera M.D. Primary Care Physician: Tae Koenig NOTES DATE OF SERVICE: 09/05/2016 DISCUSSION Aj Gray is a 56-year-old male, seen on 09/06/2016. The patient interviewed, chart reviewed, and obtained information from nursing staff. The patient was compliant and cooperative. Mood is sad and dysphoric. Flat affect, withdrawn, isolative, and tolerating medication fairly well. The patient needing one-to-one monitoring because of physical condition. The patient needing help with bathing, dressing, and toileting transfer. The patient was unsteady on his feet, admitted with depression and also with alcohol abuse. I talked to the patient's and answered all her questions. The patient will participate in art therapy, activity therapy, and group to improve development of positive coping skills. REVIEW OF SYSTEMS Complete review of systems unremarkable. MENTAL STATUS EXAMINATION General appearance, the patient dressed casually. Hygiene and grooming, poor. Attention span and concentration, fair. Oriented in place and person. Mood and affect, sad and dysphoric. Speech, monotone. Thought process, concrete. The patient denied any thoughts of harming self or others. Recent and remote memory, poor. Insight and judgment, poor. DIAGNOSIS Major depressive disorder, recurrent, severe. ASSESSMENT AND PLAN Advised to continue with current medication and therapeutic protocol. If needed, consider further adjustment of medication. Dictated by... Lane Cabrera M.D. CASSIE/tedyd TD: 09/06/2016 17:43 JOB #: [id number] Unit #: [id number] #: [id number] Patient: AJ GRAY PROGRESS NOTES Page 1 of [address] MD PROGRESS NOTE
--- NOTE | ~2016-09-03 | DS ---
Unit #: [id number] #: [id number] Patient: SABINO GRAY [id number] [facility] [address] [place] [address] [id number] I MR#: [id number] NAME: SABINO GRAY ROOM: [facility] Age: 56 Sex: M Admission Date: 09/04/2016 : 1960 Discharge Date: 09/17/2016 Attending Physician: Lane Cabrera M.D. Primary Care Physician: Jimi Bella M.D. DISCHARGE SUMMARY REASON FOR ADMISSION Suicidal ideation. DIAGNOSTIC STUDIES LABORATORY RESULTS: Unremarkable. HOSPITAL COURSE The patient was admitted to inpatient unit on 09/04/2016 and discharged on 09/17/2016. The patient was treated on the inpatient unit with group therapy, individual therapy, and medication management. The patient responded well with the above modalities of treatment and showed improvement in his mood and affect. Subsequently, the patient was discharged with a plan to follow up in outpatient program. DISCHARGE MEDICATIONS Prozac 20 mg daily for depression, Zyprexa 5 mg at bedtime for mood stabilization, trazodone 150 mg at bedtime for sleep, Sinemet 1 tablet 6:00 a.m, 2:00 p.m., and 10:00 p.m. for Parkinson disease. DISCHARGE DIAGNOSES Psychiatric: Major depressive disorder, recurrent, severe, F33.2; alcohol use disorder, severe, F10.20. Secondary diagnosis: Deferred. Medical diagnosis: Gastroesophageal reflux disease, hypertension, and Parkinson disease. Stressors: Psychosocial stressors. DISCHARGE INSTRUCTIONS The patient to follow up in outpatient clinic as per anode worker. CONDITION ON DISCHARGE The patient was pleasant and cooperative. Denied any psychotic symptom or any suicidal ideation. PROGNOSIS Guarded. DIET AND ACTIVITY As tolerated. Unit #: [id number] #: [id number] Patient: SABINO GRAY Dictated by... Lane Cabrera M.D. SZC/dakotahl TD: 09/18/2016 12:55 JOB #: [id number] DISCHARGE SUMMARY Page 1 [address] MD X DISCHARGE SUMMARY
--- NOTE | ~2016-09-03 | PN ---
Unit #: [id number] #: [id number] Patient: SABINO GRAY [id number] [facility] [address] [place] [address] [id number] I MR#: [id number] NAME: SABINO GRAY ROOM: P251 Age: 56 Sex: M Admission Date: 09/04/2016 : 1960 Attending Physician: Lane Cabrera M.D. Admitting Physician: Lane Cabrera M.D. Primary Care Physician: Tae Koenig PROGRESS NOTES DATE OF SERVICE 09/16/2016 DISCUSSION Mr. Rocha is a 56-year-old male. The patient interviewed, chart reviewed. Obtained information from nursing staff. The patient reported still having problem with sleep, but mood is better. Denied any thoughts of harming self or others. Hygiene and grooming poor, withdrawn, sad, dysphoric, but able to participate in some group. Complete Review of Systems: Unremarkable. MENTAL STATUS EXAMINATION General Appearance: The patient dressed casually. Attention span, concentration: Fair to poor, withdrawn. Sad, dysphoric. Speech monotone. Thought process: [place]. Association: The patient denied any thoughts of harming self or others but having trouble sleeping. Recent and remote memory: Poor. Insight and judgment: Poor. DIAGNOSIS Major depressive disorder, recurrent, severe. ASSESSMENT/PLAN Advised to continue with current medication and therapeutic protocol with a plan to consider discharge this week and advised to increase his trazodone to 150 mg at bedtime. If needed, consider further adjustment of medication. Dictated by... Tae Orellana/carmen TD: 09/17/2016 07:36 JOB #: [id number] Unit #: [id number] #: [id number] Patient: SABINO GRAY PROGRESS NOTES Page [address] MD PROGRESS NOTE
--- NOTE | ~2016-09-03 | PN ---
Unit #: [id number] #: [id number] Patient: AJ GRAY [id number] [facility] [address] [place] [address] [id number] I MR#: [id number] NAME: AJ GRAY ROOM: P251 Age: 56 Sex: M Admission Date: 09/04/2016 : 1960 Attending Physician: Lane Cabrera M.D. Admitting Physician: Lane Cabrera M.D. Primary Care Physician: Tae Koenig PROGRESS NOTES DATE 09/12/2016 DISCUSSION Aj Gray is a 56-year-old, male seen on 09/12/2016. The patient interviewed, chart reviewed. Obtain information from nursing staff. The patient reported that he is still feeling sad, depressed, anxious, trouble sleeping but overall making progress. Hygiene and grooming poor dressed in hospital attire, walked with the help of walker. Vital signs stable. Complete review of systems unremarkable. MENTAL STATUS EXAMINATION General appearance, the patient dressed in hospital attire. Attention span and concentration poor. Oriented to time, place and person. Mood and affect sad, depressed. Speech monotone. Thought process concrete. The patient reported having passive SI. Denied any homicidal ideation guarded. Recent and remote memory poor. Insight and judgement poor. DIAGNOSES Major depressive disorder recurrent severe ASSESSMENT/PLAN Advise to continue with current medication with a plan to add Trazodone 50 mg at bedtime for sleep. If need consider further adjustment of medication. Dictated by... Tae Orellana/raul TD: 09/13/2016 12:55 JOB #: [id number] Unit #: [id number] #: [id number] Patient: AJ GRAY PROGRESS NOTES Page 1 [address] MD PROGRESS NOTE
--- NOTE | ~2016-09-03 | CO ---
Unit #: [id number] #: [id number] Patient: AJ GRAY [id number] [place] [address] [id number] I MR#: [id number] NAME: AJ GRAY ROOM: P251 Age: 56 Sex: M Admission Date: 09/04/2016 : 1960 Attending Physician: Lane Cabrera M.D. Primary Care Physician: Jimi Bella M.D. Consultation Date: 09/04/2016 CONSULTATION REPORT HISTORY OF PRESENT ILLNESS Aj reports pain in his left knee that started about a week ago when he fell while he was drinking. The pain does not seem to be getting any better. He has been taking meloxicam daily, but it does not seem to help. He has noticed swelling in his left knee and warmth as well. No pain or swelling in his calf or his ankle. Pain is better if he is not ambulating, but once he tries to put weight on his left knee, the pain gets much worse. He is currently using a wheelchair. He has no other complaints. The patient recently diagnosed with Parkinson disease and started on Sinemet and Mirapex yesterday. PHYSICAL EXAMINATION CARDIAC: Regular rate and rhythm. No murmurs, gallops, or rubs. RESPIRATORY: Clear to auscultation bilaterally. MUSCULOSKELETAL: Left-sided knee swelling without erythema. He does have heat coming off his knees. He is able to flex and extend without any difficulty. He does report pain with flexion and extension. NEUROLOGIC: Tremors in bilateral hands. ASSESSMENT AND PLAN 1. Left knee pain. The patient is already taking meloxicam. We will add tramadol 50 mg p.o. q.12 hours p.r.n. pain and ice three times daily and send the patient home with tramadol. If symptoms are worsening, please notify and we will consider imaging. 2. Parkinson disease. The patient was started on Sinemet and Mirapex yesterday. He reports that he has not really noticed difference in his tremors. We will consider continue with Mirapex and Sinemet and continue to monitor. Dictated by... Melanie RyanPDanyRRobi for Unique Mcdaniel M.D. SANDRA/teddy TD: 09/06/2016 01:46 JOB #: [id number] Unit #: [id number] #: [id number] Patient: AJ GRAY CONSULTATION REPORT Page 1 of 1 X YAKOV BECERRA APRN CONSULTATION REPORT
--- NOTE | ~2016-09-03 | PN ---
Unit #: [id number] #: [id number] Patient: AJ GRAY [id number] [facility] [address] [place] [address] [id number] MR#: [id number] NAME: AJ GRAY ROOM: P251 Age: 56 Sex: M Admission Date: 09/04/2016 : 1960 Attending Physician: Lane Cabrera M.D. Admitting Physician: Lane Cabrera M.D. Primary Care Physician: Tae Koenig PROGRESS NOTES DATE OF SERVICE: 09/05/2016 DISCUSSION Aj Gray is a 56-year-old male, seen on 09/05/2016. The patient interviewed, chart reviewed, and obtained information from nursing staff. The patient was admitted with suicidal ideation, withdrawn, isolative, flat affect. The patient's vital signs; temperature 97.6, pulse 74, blood pressure 119/68. The patient is currently on no medication, but reported feeling sad, depressed, paranoid. REVIEW OF SYSTEMS A complete review of systems is unremarkable. MENTAL STATUS EXAMINATION General appearance; the patient dressed casually. Attention span and concentration, fair. Oriented in place and person. Mood and affect, labile. Speech, monotone. Thought process, concrete. The patient denied any thoughts of harming self or others, but guarded. Recent and remote memory, poor. Insight and judgment, poor. DIAGNOSES Alcohol use disorder, severe; mood disorder, not otherwise specified. ASSESSMENT AND PLAN Advised to continue with the detox protocol, and I advised Zyprexa 5 mg at bedtime, Prozac 20 mg daily. If needed, consider further adjustment of medication. Continue with one-to-one monitoring for safety and resume his home medication. Dictated by... Tae Orellana/teddy TD: 09/05/2016 19:35 JOB #: [id number] Unit #: [id number] #: [id number] Patient: AJ GRAY PROGRESS NOTES Page 1 [address] MD X PROGRESS NOTE
--- NOTE | ~2016-09-03 | CO ---
Unit #: [id number] #: [id number] Patient: AJ GRAY [id number] [place] [address] [id number] MR#: [id number] NAME: AJ GRAY ROOM: P251 Age: 56 Sex: M Admission Date: 09/04/2016 : 1960 Attending Physician: Lane Cabrera M.D. Primary Care Physician: Jimi Bella M.D. Consultation Date: 09/09/2016 CONSULTATION REPORT SUBJECTIVE Aj is a 56-year-old who had complained of his ear being clogged up. He denies any pain. He has had no head congestion or sore throat, and there have been no recorded increased temperatures. We have been asked to assess and give recommendations. OBJECTIVE GENERAL: Alert, well nourished, in no apparent distress. VITAL SIGNS: Blood pressure 130/70, heart rate 80, respirations 16, temperature 98.6. HEENT: Normocephalic. TMs shiny. Canals with small amount of wax, but not occluded. NECK: Supple without lymphadenopathy. ASSESSMENT The patient had complained of ears being clogged, but he tells me this has resolved. PLAN No Rx. Dictated by... Jennifer iRchards P.A.-C. for Tae Stallings/teddy TD: 09/11/2016 22:54 JOB #: [id number] CONSULTATION REPORT Page 1 of 1 X Jennifer Richards X CONSULTATION REPORT
--- NOTE | ~2016-09-03 | PN ---
Unit #: [id number] #: [id number] Patient: AJ GRAY [id number] [facility] [address] [place] [address] [id number] MR#: [id number] NAME: AJ GRAY ROOM: P251 Age: 56 Sex: M Admission Date: 09/04/2016 : 1960 Attending Physician: Lane Cabrera M.D. Admitting Physician: Lane Cabrera M.D. Primary Care Physician: Tae Koenig NOTES DATE OF SERVICE: 09/07/2016 DISCUSSION Aj Gray is a 56-year-old male, seen on 09/07/2016. The patient interviewed, chart reviewed, and obtained information from nursing staff. The patient still needing one-to-one monitoring. Very shaky due to Parkinson disease, but able to walk some. The patient was coherent and able to answer questions appropriately. Reported still feeling weird, paranoia, sad, and depressed mood. The patient needing assistance with the ADLs. REVIEW OF SYSTEMS Complete review of systems was unremarkable. MENTAL STATUS EXAMINATION General appearance, the patient dressed in hospital attire. Hygiene and grooming, poor. Attention span and concentration, fair. Oriented in place and person. Mood and affect, sad and depressed. Speech, monotone. Thought process, circumstantial. The patient reported having passive SI, denied any plan. Denied any homicidal ideation. Guarded. Some paranoia. Recent and remote memory, poor. Insight and judgment, poor. DIAGNOSES Mood disorder, not otherwise specified; rule out major depressive disorder; and alcohol use disorder, severe. ASSESSMENT AND PLAN Advised to continue with current medication and therapeutic protocol. If needed, consider further adjustment of medication and encourage the patient to participate in all the programing. If needed, consider further adjustment of medication. Dictated by... Lane Cabrera M.D. CASSIE/teddy TD: 09/07/2016 16:54 JOB #: [id number] Unit #: [id number] #: [id number] Patient: AJ GRAY PROGRESS NOTES Page [address] MD PROGRESS NOTE
--- NOTE | ~2016-09-03 | PN ---
Unit #: [id number] #: [id number] Patient: AJ GRAY [id number] [facility] [address] [place] [address] [id number] I MR#: [id number] NAME: AJ GRAY ROOM: P251 Age: 56 Sex: M Admission Date: 09/04/2016 : 1960 Attending Physician: Lane Cabrera M.D. Admitting Physician: Lane Cabrera M.D. Primary Care Physician: Tae Koenig PROGRESS NOTES DATE 09/10/2016 DISCUSSION Aj Gray is a 56-year-old male seen on 09/10/2016. Patient interviewed. Chart reviewed. Obtained information from nursing staff. Patient's hygiene and grooming fair. Dressed in hospital attire. Walked with the help of walker slowly. Mood sad, dysphoric, flat affect. Patient reported that she is still feeling sad, depressed but denied any active SI but passive SI. Patient able to participate in some group but still sad, depressed. Denied any hallucinations but still somewhat guarded, paranoid. Patient still having tremors due to Parkinson disease. Compliant with medication. No side effects from medication. Interactive with some peers. Complete review of system unremarkable. MENTAL STATUS EXAMINATION General appearance, patient tall, well-built, dressed casually in hospital attire. Hygiene and grooming somewhat poor, disheveled. Attention span, concentration fair. Oriented in time, place and person. Mood and affect sad, depressed. Speech slow, long pauses. Thought process circumstantial. Association guarded, paranoid but denied any thoughts of harming self or others but passive SI. Reports making progress, withdrawn, guarded. Recent and remote memory poor. Insight and judgement poor. DIAGNOSIS Major depressive disorder, recurrent, severe, F33.2. ASSESSMENT/PLAN Advised to continue with current medication and therapeutic protocol. If needed, consider further adjustment of medication. Dictated by... Lane Cabrera M.D. CASSIE/arjun TD: 09/11/2016 20:26 JOB #: [id number] Unit #: [id number] #: [id number] Patient: AJ GRAY PROGRESS NOTES Page 1 of 1 X Rick,Lane MUSA X PROGRESS NOTE
--- NOTE | ~2016-09-03 | PN ---
Unit #: [id number] #: [id number] Patient: AJ GRAY [id number] [facility] [address] [place] [address] [id number] MR#: [id number] NAME: AJ GRAY ROOM: P251 Age: 56 Sex: M Admission Date: 09/04/2016 : 1960 Attending Physician: Lane Cabrera M.D. Admitting Physician: Lane Cabrera M.D. Primary Care Physician: Tae Koenig PROGRESS NOTES DATE 09/13/2016 DISCUSSION Mr. Aj Gray is a 56-year-old male seen on 09/13/2016. The patient interviewed, chart reviewed. Obtained information from nursing staff. The patient dressed casually in hospital attire, withdrawn, flat, sad, dysphoric. The patient reports still feeling sad, depressed, having passive SI, making progress. Compliant with medication. No depression from medication. Complete review of systems unremarkable. MENTAL STATUS EXAMINATION The patient dressed in hospital attire. Attention span and concentration poor. Oriented to time, place and person. Mood and affect sad, depressed. Speech monotone. Thought process goal directed. The patient denied any thoughts of harming others but having passive SI, withdrawn, sad, depressed. Recent and remote memory poor. Insight and judgement poor. DIAGNOSES 1. Major depressive disorder recurrent severe 2. Parkinson disease ASSESSMENT/PLAN Advise to continue with current medication and therapeutic protocol. If needed consider further adjustment of medication. Dictated by... Tae Orellana/raul TD: 09/14/2016 22:46 JOB #: [id number] Unit #: [id number] #: [id number] Patient: AJ GRAY PROGRESS NOTES Page 1 [address] MD X PROGRESS NOTE
[~2016-09-03 15:00] MED LIST changes: +AMITRIPTYLINE H50 MG PO; +FLEXERIL10 MG PO; +MELOXICAM7.5 MG PO
== END 2016-09-17 10:15 | disposition home or self-care (01) | DRG 885 ==
LOC: P2L 09-04 17:15
DX: F33.2 Major depressive disorder, recurrent severe without psychotic features (principal); G20 Parkinson's disease; R45.851 Suicidal ideations; F10.20 Alcohol dependence, uncomplicated; K21.9 Gastro-esophageal reflux disease without esophagitis; I10 Essential (primary) hypertension; I25.10 Atherosclerotic heart disease of native coronary artery without angina pectoris; Z87.442 Personal history of urinary calculi; Z95.5 Presence of coronary angioplasty implant and graft; M25.562 Pain in left knee; H93.8X3 Other specified disorders of ear, bilateral
CPT/HCPCS: 36415; 36600; 72040; 72072; 80048; 80076; 80307; 82550; 82553; 82607; 82803; 83735; 84439; 84443; 84484; 85025; 85027; 85610; 85730; 93005; 96361; 96374; 99285; G0480; J3475